=== PATIENT | female | born 1960 | race Caucasian/White ===

== ENCOUNTER 2020-03-23 06:47 | Day surgery (SDC) | payer BC ==
[~2020-03-23] VITALS: Ht 167.6 cm; Wt 66.3 kg
[2020-03-23] MEDS ORDERED: EZET10TA70 PO (07:38)
[2020-03-23] MEDS ORDERED: OXYC5CAP2 PO (07:38)
[2020-03-23] MEDS ORDERED: ACET-76 PO (07:38)
[2020-03-23] MEDS ORDERED: LACTATED RINGERS 1,000 ML IV SCH (07:41)
[2020-03-23] MEDS ORDERED: CHLORHEXIDINE 15 ML UDC MM ONE (08:00)
[2020-03-23 08:03] VITALS: BP 138/94
[2020-03-23] MEDS ORDERED: PROPOFOL 10 MG/ML, 20ML ONE ×4 (08:50→09:18)
[2020-03-23] MEDS ORDERED: ONDANSETRON 2MG/ML, 2ML ONE (08:50)
[2020-03-23] MEDS ORDERED: FENTANYL PF 100 MCG/2ML ONE (10:08)
[2020-03-23] MEDS ORDERED: OXYcodone 5 MG/5 ML ORAL.SOL UDC ONE (10:08)
[2020-03-23] MEDS ORDERED: OXYcodone 5 MG/5 ML ORAL.SOL UDC PO PRN (10:30)
[2020-03-23] MEDS ORDERED: FENTANYL PF 100 MCG/2ML IVPush PRN (10:30)
== END 2020-03-23 11:50 | disposition home or self-care (01) ==
LOC: OUT 06:47
PROVIDERS: ATTEND Internal Medicine
DX: C25.1 Malignant neoplasm of body of pancreas (principal); K31.89 Other diseases of stomach and duodenum; R18.8 Other ascites; E78.5 Hyperlipidemia, unspecified; Z88.5 Allergy status to narcotic agent; Z79.899 Other long term (current) drug therapy; Z72.89 Other problems related to lifestyle; Z87.891 Personal history of nicotine dependence; Z98.890 Other specified postprocedural states
CPT/HCPCS: 43242; 88172; 88173; 88307; J2405; J2704; J3010; J7120